=== PATIENT | female | born 1965 | race Caucasian/White ===

== ENCOUNTER 2020-01-14 18:37 | Emergency (ER) | payer MEDICARE, OTHER ==
[~2020-01-14] VITALS: Ht 162.6 cm; Wt 97.7 kg
[~2020-01-14 18:37] MED LIST: OXYB5 PO
[2020-01-14] MEDS ORDERED: FLUT16H NASAL (18:48)
[2020-01-14] MEDS ORDERED: GABA-1181 PO (18:48)
[2020-01-14] MEDS ORDERED: OLAN7.5T2 PO (18:48)
[2020-01-14] MEDS ORDERED: NALT50TA6 PO (18:48)
[2020-01-14] MEDS ORDERED: DULO40CA2 PO (18:48)
[2020-01-14] MEDS ORDERED: LAMO100 PO (18:48)
[2020-01-14 20:21] VITALS: BP 121/65
== END 2020-01-14 20:38 | disposition home or self-care (01) ==
LOC: EMS 18:37
DX: M17.11 Unilateral primary osteoarthritis, right knee (principal); Z88.5 Allergy status to narcotic agent; Z88.2 Allergy status to sulfonamides; Z88.6 Allergy status to analgesic agent
CPT/HCPCS: 29530

== ENCOUNTER 2020-09-23 20:19 | Emergency (ER) | payer MEDICARE, OTHER ==
[~2020-09-23] VITALS: Ht 162.6 cm; Wt 88.6 kg
[~2020-09-23 20:19] MED LIST changes: +DULO40CA2 PO; +FLUT16H NASAL; +GABA-1181 PO; +LAMO100 PO; +NALT50TA6 PO; +OLAN7.5T2 PO; -OXYB5 PO
[2020-09-23] MEDS ORDERED: OFLO35OS OU (20:54)
[2020-09-23] MEDS ORDERED: NEOMYCIN/POLYMYXIN B/HYDROCORT 10 ML OTIC SOLUTION AU ONE (23:00)
[2020-09-23 23:21] VITALS: BP 136/73
== END 2020-09-23 23:52 | disposition home or self-care (01) ==
LOC: EMS 20:19
DX: H60.93 Unspecified otitis externa, bilateral (principal); F31.9 Bipolar disorder, unspecified; F20.9 Schizophrenia, unspecified; F17.210 Nicotine dependence, cigarettes, uncomplicated; Z88.1 Allergy status to other antibiotic agents; Z88.6 Allergy status to analgesic agent; Z88.5 Allergy status to narcotic agent
CPT/HCPCS: 99283

== ENCOUNTER 2021-03-30 16:32 | Emergency (ER) | payer OTHER ==
[~2021-03-30] VITALS: Ht 162.6 cm; Wt 100.0 kg
[~2021-03-30 16:32] MED LIST changes: +OFLO35OS OU; -OLAN7.5T2 PO; +OLAN7.5T22 PO
[2021-03-30 17:28] LABS: BASOPHILS % (AUTO) 0.3 % (0.0-2.0); EOSINOPHILS % (AUTO) 2.4 % (1.0-6.0); HEMATOCRIT 44.1 % (36-46); HEMOGLOBIN 14.6 g/dL (12.0-16.0); LYMPHOCYTES # (AUTO) 2.3 K/uL (1.0-4.8); LYMPHOCYTES % (AUTO) 21.4 % (22.0-44.0); MEAN CORPUSCULAR HEMOGLOBIN 29.8 pg (26.0-34.0); MEAN CORPUSCULAR HGB CONC 33.2 G/dL (31.0-37.0); MEAN CORPUSCULAR VOLUME 90 fL (80-100); MONOCYTES # (AUTO) 0.8 K/uL (0.1-1.0); MONOCYTES % (AUTO) 7.5 % (2.0-9.0); NEUTROPHILS # (AUTO) 7.3 K/uL (1.8-7.7); NEUTROPHILS % (AUTO) 68.4 % (40.0-70.0); PLATELET COUNT (AUTO) 350 K/uL (150-450); RED BLOOD CELL COUNT(AUTO) 4.91 MIL/uL (4.00-5.20); RED CELL DISTRIBUTION WIDTH 16.3 % (11.5-14.5)
[2021-03-30 17:41] LABS: ANION GAP 9 mmol/L (8-16); CALCIUM, TOTAL 9.4 mg/dL (8.8-10.5); CARBON DIOXIDE 31 mmol/L (22-29); CHLORIDE 101 mmol/L (98-107); CREATININE 0.82 mg/dL (0.60-1.30); GLOMERULAR FILTR. RATE CALC > 60 mL/min (>60); GLUCOSE,RANDOM 85 mg/dL (70-110); POTASSIUM 3.7 mmol/L (3.5-5.1); SODIUM SERUM 141 mmol/L (136-145); UREA NITROGEN, BLOOD 15 mg/dL (7-18)
[2021-03-30] MEDS ORDERED: LORazepam 1 MG TABLET PO ONE (17:45)
[2021-03-30] MEDS ORDERED: GABAPENTIN 100 MG CAPSULE PO ONE (17:45)
[2021-03-30] MEDS ORDERED: OLANZapine 5 MG TABLET PO ONE (17:45)
[2021-03-30 17:48] LABS: ALANINE AMINOTRANSFERASE 22 U/L (12-78); ALBUMIN 3.9 g/dL (3.4-5.0); ALKALINE PHOSPHATASE 122 U/L (46-116); ASPARTATE AMINOTRANSFERASE 28 U/L (15-37); BILIRUBIN,TOTAL 0.7 mg/dL (0.1-1.0); CHOL/HDL RATIO 2.4 (3.9-5.7); CHOLESTEROL 173 mg/dL (131-200); HDL CHOLESTEROL 73 mg/dL (40-60); LDL CHOL (CALC.) 93 mg/dL (0-130); TOTAL PROTEIN, SERUM 7.5 g/dL (6.4-8.2); TRIGLYCERIDES 33 mg/dL (15-150)
[2021-03-30 18:34] LABS: AMPHET/METH SCREEN,URINE POSITIVE (NEGATIVE); BARBITURATE SCREEN, URINE NEGATIVE (NEGATIVE); BENZODIAZEPINES SCREEN,URINE NEGATIVE (NEGATIVE); CANNABINOID SCREEN,URINE NEGATIVE (NEGATIVE); COCAINE SCREEN,URINE NEGATIVE (NEGATIVE); METHADONE SCREEN, URINE NEGATIVE (NEGATIVE); OPIATE SCREEN,URINE NEGATIVE (NEGATIVE)
[2021-03-30 18:35] LABS: COVID AG,FIA SOURCE NASOPHARYNGEAL
[2021-03-30 18:35] LABS: APPEARANCE,URINE RPT (CLEAR); BILIRUBIN,URINE NEGATIVE (NEGATIVE); GLUCOSE, URINE (UA) NEGATIVE (NEGATIVE); KETONES,URINE NEGATIVE (NEGATIVE); LEUKOCYTE ESTERASE ,URINE LARGE (NEGATIVE); NITRATE,URINE POSITIVE (NEGATIVE); OCCULT BLOOD,URINE LARGE (NEGATIVE); PROTEIN,URINE SEE CONFIRM (NEGATIVE)
[2021-03-30 18:56] LABS: PHENCYCLIDINE SCREEN,URINE NEGATIVE (NEGATIVE)
[2021-03-30 19:04] LABS: SULFOSALICYLIC ACID,URINE 2+ (Negative)
[2021-03-30 19:05] LABS: BACTERIA,URINE Moderate /HPF (None Seen); WBC,URINE Full Field /HPF (0-5)
[2021-03-30 20:31] VITALS: BP 122/68
== END 2021-03-30 20:30 | disposition home or self-care (01) ==
LOC: EMS 16:35
DX: R45.851 Suicidal ideations (principal); N39.0 Urinary tract infection, site not specified; G89.29 Other chronic pain; F15.10 Other stimulant abuse, uncomplicated; F31.9 Bipolar disorder, unspecified; F20.9 Schizophrenia, unspecified; F17.210 Nicotine dependence, cigarettes, uncomplicated; Z88.2 Allergy status to sulfonamides; Z88.5 Allergy status to narcotic agent; Z88.6 Allergy status to analgesic agent; Z79.899 Other long term (current) drug therapy; Z20.822 Contact with and (suspected) exposure to COVID-19
CPT/HCPCS: 36415; 80053; 80061; 80307; 81001; 85025; 87077; 87086; 87186; 87426; 99285; G0480; 81002